=== PATIENT | male | born 1950 | race Caucasian/White ===

== ENCOUNTER 2017-08-16 08:11 | Day surgery (SDC) | payer MEDICARE ==
[2017-08-16 10:45] VITALS: TEMP 98.4
[2017-08-16 10:47] VITALS: BMI 28.3
[2017-08-16 10:49] VITALS: BP 138/83
[2017-08-16] MEDS ORDERED: FLU VACC TS2017-18 (>65YR) 0.5 ML SYRINGE IM ONE (11:00)
--- NOTE | 2017-08-16 12:09 | MRI ---
MRI THORACIC SPINE WITH AND WITHOUT CONTRAST: Date: 08/16/17 HISTORY: 67-year-old male with D48.0 spine lesion. Chronic low back pain. COMPARISON: None. TECHNIQUE: Multisequence MRI of thoracic spine obtained in sagittal and axial planes, pre and post IV injection of 20 mL of MultiHance Gadolinium based contrast agent. FINDINGS: Vertebral body heights are maintained. 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 Likewise, at the left posterior aspect of the T7 vertebral body, there is a similar lesion with similar signal characteristics and enhancement, consistent with anothe r hemangioma of bone. There is a nonacute, nonunited fracture of the proximal aspect of the left 10th rib, surrounded by a 2 x 2 cm soft tissue-signal mass with heterogeneous enhancement. There is bone marrow edema of the 2 fracture fragments. Within the right T12 spinal canal, there is an approximately 1 x 1 x 2 cm rim-enhancing mass which is heterogeneously T2 hypointense and intermediate, T1 hypointense, and has circumferential rim enhance ment contiguous with enhancement of the anterior epidural space. This mass is probably extradural. Th e mass mildly displaces the lower portion of the spinal cord to the left. The mass occupies approxima tely 20% of the cross-sectional area of the spinal canal at this level. There is also a rim enhancing mass component in the right T12-L1 neural foramen. This component measures approximately 1.0 x 0.5 c m (axial image 67 of 72, series 11). There is no impingement upon the rest of the thoracic spinal cord. The thoracic spinal cord is normal in size and signal. At T11-12, there is moderate to severe bilateral degenerative facet disease, with hypertrophy of the bilateral facet complexes and ligamentum flavum thickening, which indent the bilateral posterolateral aspect of the thecal sac, abutting the spinal cord. This, together with central and bilateral parace ntral disc herniation or disc-osteophytic bar complex, results in moderate central spinal canal steno sis at that level. There is also similar posterior element degenerative hypertrophy, some asymmetrica lly so, at multiple levels throughout the lower, mid, and upper thoracic spine, but there are no othe r levels of moderate or severe central spinal canal stenosis. Facet osteophytes do encroach upon bila teral neural foramina at multiple levels, causing mild and moderate neural foraminal stenosis. IMPRESSION: 1. A rim-enhancing mass in the right side of the spinal canal (probably extradural) at the T12 level , mildly impinging on the right side of the spinal cord, with a component occupying the right neural foramen. Based on the rim enhancement pattern, these are probably an extruded, migrated, and possibly sequestered extruded disc herniation fragments. It is uncertain whether the large mass within the sp inal canal has arisen from the T11-12 disc or the T12-L1 disc. It is slightly favored that they have both originated from the T12-L1 disc. The other possibility of a neoplasm such as nerve sheath tumor is considered less likely, because the T2 signal characteristic and the enhancement characteristic ar e not typical for nerve sheath tumor. Intraspinal metastasis is also unlikely. 2. Fracture and surrounding mass of the left T10 rib. It is possible that this fracture could be tra umatic, and that the enhancing mass could be reactive granulation tissue and/or callus. However, the fact that it is isolated to this one rib would be unusual for trauma. Therefore, the possibility of p athologic fracture due to underlying aggressive process such as rib metastasis, should be considered. Consider CT of the chest, abdomen, and pelvis with contrast, and/or nuclear medicine whole body bone scan, to search for other skeletal lesions, and any potential primary neoplasm. 3. Thoracic spondylosis, with multilevel (predominantly mild) degenerative disc disease, and multile ivan (including moderately severe) facet osteoarthrosis. 5. No compression fracture. CODE T.
[2017-08-16] MEDS ORDERED: Gadobenate Dimeglumine 529 MG/1 ML (20ML VIAL) ONE (13:58)
[2017-08-16] MEDS ORDERED: Iopamidol-M 300 61% 15 ML VIAL ONE (13:58)
--- NOTE | 2017-08-16 15:46 | CT ---
MYELOGRAM AND POSTMYELOGRAPHIC CT OF THORACIC SPINE: DATE: 08/26/17. FINDINGS: Informed consent was obtained from the patient. The right L1-2 interlaminar space was marked using a hemostat. The overlying skin was prepped and dr aped in the usual sterile manner. A 1% Lidocaine solution was used to anesthetize the overlying soft tissues. A 22-gauge spinal needle was placed into the subarachnoid space. Approximately 10 mL of I sovue-M 300 was injected into the subarachnoid space. This was positioned using gravity into the tho racic spine. Postmyelographic CT images obtained. Bridging osteophytes seen extending anteriorly from T4 all the way to T12. No definite intrathecal a bnormality is seen. There is a right-sided T12 epidural collection which compresses the right T12 th ecal sac displacing the thecal sac and distal cord toward the left. This correlates with the area of enhancement seen on the patient's recent MRI. IMPRESSION: 1. Right T12 epidural and neural foraminal soft tissue density compressing the thecal sac extending into the right T12-L1 neural foramen. 2. Incidentally noted heterogeneous fullness and enhancement is seen in the left thyroid lobe which is asymmetrically enlarged. POS: [facility]
== END 2017-08-16 13:03 | disposition home or self-care (01) ==
LOC: RAD 08:11
PROVIDERS: ATTEND Surgery
DX: D48.0 Neoplasm of uncertain behavior of bone and articular cartilage (principal); G89.29 Other chronic pain; M54.5 Low back pain; Z79.01 Long term (current) use of anticoagulants; Z86.711 Personal history of pulmonary embolism; Z86.73 Personal history of transient ischemic attack (TIA), and cerebral infarction without residual deficits; Z96.659 Presence of unspecified artificial knee joint
CPT/HCPCS: 62303; 72129; 72157; A9579

== ENCOUNTER 2017-12-08 11:22 | Outpatient (CLI) | payer MEDICARE ==
[2017-12-08 12:24] LABS: Hemoglobin 15.7 g/dL (14.0-18.0); Mean Corpuscular HGB CONC 33.8 g/dL (32.0-36.0); Mean Corpuscular Hemoglobin 30.6 pg (27.0-31.0); Mean Corpuscular Volume 90.7 fl (80.0-94.0); Mean Platelet Volume 6.8 fL (7.4-10.4); Platelet Count 200 thou/uL (130-400); RBC Distribution Width 11.6 % (11.5-14.5); Red Blood Cell (RBC) Count 5.12 mill/uL (4.70-6.10); White Blood Cell (WBC) Count 4.8 thou/uL (4.8-10.8)
[2017-12-08 12:35] LABS: PTT 30.1 SEC (22.9-36.1); Prothrombin Time 12.9 SEC (12.0-14.7)
[2017-12-08 12:44] LABS: Anion Gap 10 mmol/L (10-20); BUN (Urea Nitrogen) 15 mg/dL (8.4-25.7); Calc. Creatinine Clearance 0 mL/min (70-130); Calcium 9.8 mg/dL (7.8-10.44); Carbon Dioxide 30 mmol/L (23-31); Chloride 100 mmol/L (98-107); Estimated GFR-MDRD 67; Glucose 100 mg/dL (80-115); Potassium 4.2 mmol/L (3.5-5.1); Sodium 136 mmol/L (136-145)
--- NOTE | 2017-12-22 22:42 | EKG ---
Test Reason : Blood Pressure : / mmHG Vent. Rate : 052 BPM Atrial Rate : 052 BPM P-R Int : 166 ms QRS Dur : 086 ms QT Int : 418 ms P-R-T Axes : 048 024 028 degrees QTc Int : 388 ms Sinus bradycardia Otherwise normal ECG No previous ECGs available Confirmed by Deya BREWER ([id number]) on 12/22/2017 10:41:47 PM Referred By: ROXANNE Confirmed By:Deya BREWER
== END 2017-12-08 11:23 | disposition home or self-care (01) ==
LOC: LABBT 11:22
PROVIDERS: ATTEND Surgery
DX: Z01.818 Encounter for other preprocedural examination (principal); M47.14 Other spondylosis with myelopathy, thoracic region; M51.14 Intervertebral disc disorders with radiculopathy, thoracic region
CPT/HCPCS: 80048; 85027; 85610; 85730; 93005; 93010

== ENCOUNTER 2017-12-14 05:49 | Inpatient (IN) | payer MEDICARE ==
[2017-12-08 11:36] VITALS: BMI 32.1
[2017-12-14] MEDS ORDERED: Sodium Chloride 0.9% 10 ML ONE (06:36)
[2017-12-14] MEDS ORDERED: Bacitracin Zinc Ointment 30 gm TUBE ONE (06:36)
[2017-12-14] MEDS ORDERED: Thrombin 5000 UNITS/5 ML VIAL ONE (06:36)
[2017-12-14] MEDS ORDERED: CEFAZOLIN/Water 2 GM/20 ML SYRINGE ONE (06:45)
[2017-12-14] MEDS ORDERED: Albumin 5% 500 ML ONE (07:09)
[2017-12-14] MEDS ORDERED: Phenylephrine HCL 10 MG/ML VIAL ONE (07:09)
[2017-12-14] MEDS ORDERED: Fentanyl 250 MCG/5 ML VIAL ONE (07:25)
[2017-12-14] MEDS ORDERED: Morphine Sulfate 2 MG/ML SYRINGE SLOW IVP PRN (09:31)
[2017-12-14] MEDS ORDERED: Ondansetron HCl/PF 4 MG/2 ML Vial IVP PRN (09:31)
[2017-12-14] MEDS ORDERED: Promethazine HCl 25 MG/ML VIAL SLOW IVP PRN (09:31)
[2017-12-14] MEDS ORDERED: HYDROmorphone 2 MG/ML VIAL SLOW IVP PRN (09:31)
[2017-12-14] MEDS ORDERED: Meperidine HCl/PF 25 MG/ML VIAL SLOW IVP PRN (09:31)
[2017-12-14] MEDS ORDERED: Promethazine HCl 25 MG/ML VIAL IM PRN ×2 (09:31→11:22)
[2017-12-14] MEDS ORDERED: HYDROmorphone 0.5 MG/0.5 ML SYRINGE ONE (11:05)
--- NOTE | 2017-12-14 11:06 | OP ---
DATE OF PROCEDURE: 12/14/2017 OR: OR #12 WOUND TYPE: Type 1 wound. SURGEON: Antonio Suh M.D. LASER CUTTER: Eyal Car PA-C. 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 PROCEDURE: 1. Right T12-L1 transpedicular approach with pediculectomy and transverse process removal with trans faucet approach to a herniated disk with diskectomy. 2. Use of operative microscope for microdissection. DESCRIPTION OF PROCEDURE: After informed consent was obtained from the patient, the patient brought to OR. Proper patient pause identification was carried out. He was placed under general anesthesia and positioned prone. All appropriate points were padded. Using AP fluoroscopy I identified the T12 -L1 segment. A linear luis was made in this region. This area sterilely cleansed, prepared, and ira ped. Proper patient pause and identification was carried out. The wound was then opened with a comb ination of sharp, monopolar and blunt dissection. I proceeded over the right T12-L1 segment and expo sed this region and localized. I then performed a right T12 transpedicular approach and exposed the right T12 nerve root, both above and below where it attached to the common dural tube. Being very ca reful I then identified using the operative microscope for microdissection disk material that had ext ruded from the T12-L1 segment and moved cephalad. Multiple disk fragments were removed resulting in satisfactory decompression of spinal cord and nerve root. There was no spinal fluid leak. Hemostasi s was maximized and the wound was then closed in anatomic layers following the sprinkling of vancomyc in powder. The patient then emerged from anesthesia.
[2017-12-14] MEDS ORDERED: Fleet Enema 133 ML BOT PR PRN (11:22)
[2017-12-14] MEDS ORDERED: Acetaminophen/Codeine 30-300mg Tablet PO PRN (11:22)
[2017-12-14] MEDS ORDERED: Milk Of Magnesia 30 ML UDCUP PO PRN (11:22)
[2017-12-14] MEDS ORDERED: traMADol HCl 50 MG TAB PO PRN (11:22)
[2017-12-14] MEDS ORDERED: Mag-Al 1200 mg/1200 mg/30 ML UDCUP PO PRN (11:22)
[2017-12-14] MEDS ORDERED: Acetaminophen 325 MG TAB PO PRN (11:22)
[2017-12-14] MEDS ORDERED: Bisacodyl 10 MG SUPP PR PRN (11:22)
[2017-12-14] MEDS ORDERED: Lidocaine 1% PF 5 ML VIAL ONE (11:43)
[2017-12-14] MEDS ORDERED: Glycopyrrolate 0.2 MG/ML 5 ML SYRINGE ONE (11:43)
[2017-12-14] MEDS ORDERED: ePHEDrine/0.9% NaCl/PF SYRINGE 50 mg/10 ml ONE (11:43)
[2017-12-14] MEDS ORDERED: PHENYLEPHRINE-NS 100 MCG/ML 10 ML SYRINGE ONE (11:43)
[2017-12-14] MEDS ORDERED: PROPOFOL 200 MG/20 ML VIAL ONE (11:43)
[2017-12-14] MEDS ORDERED: Ondansetron HCl/PF 4 MG/2 ML Vial ONE (11:43)
[2017-12-14] MEDS ORDERED: Promethazine HCl 25 MG/ML VIAL ONE (11:57)
[2017-12-14] MEDS ORDERED: CEFAZOLIN/Water 2 GM/20 ML SYRINGE SLOW IVP SCH (14:00)
[2017-12-14] MEDS: Sodium Chloride 0.9% 1,000 ML IV SCH (14:50)
[2017-12-14] MEDS ORDERED: Morphine 4 MG/ML VIAL SLOW IVP PRN (14:54)
[2017-12-14] MEDS: CEFAZOLIN/Water 2 GM/20 ML SYRINGE SLOW IVP SCH (16:33)
[2017-12-14] MEDS: HYDROcodone/Acetaminophen 7.5/325 mg Tablet PO PRN (20:56)
[2017-12-14] MEDS ORDERED: Finasteride 5 MG TAB PO SCH (21:00)
[2017-12-14] MEDS ORDERED: Pravastatin Sodium 40 MG TAB PO SCH (21:00)
[2017-12-14] MEDS ORDERED: Valsartan 80 MG TAB PO SCH (21:00)
[2017-12-14] MEDS ORDERED: Amlodipine 5 MG TAB PO SCH (21:00)
[2017-12-14] MEDS ORDERED: Hydrochlorothiazide 25 MG TAB PO SCH (21:00)
[2017-12-14] MEDS ORDERED: Non-Formulary Item 1 EACH (Valsartan/Hydrochlorothiazide [Valsartan-Hctz 320-12.5 Mg Tab] PO SCH (21:00)
[2017-12-14] MEDS ORDERED: Tamsulosin HCl 0.4 MG CAP PO SCH (21:00)
[2017-12-15] MEDS: CEFAZOLIN/Water 2 GM/20 ML SYRINGE SLOW IVP SCH (00:30)
[2017-12-15] MEDS: HYDROcodone/Acetaminophen 7.5/325 mg Tablet PO PRN ×2 (00:43→10:01)
[2017-12-15] MEDS: tiZANidine HCl 4 MG TAB PO PRN ×2 (00:44→11:25)
[2017-12-15] MEDS: Sodium Chloride 0.9% 1,000 ML IV SCH (04:09)
[2017-12-15] MEDS ORDERED: Calcium Carbonate + Vit D 1 TAB PO SCH (09:00)
[2017-12-15] MEDS ORDERED: [UNRECOGNIZED DRUG - OTHER] PO SCH (09:00)
[2017-12-15 11:28] VITALS: BP 134/80; TEMP 98.2
--- NOTE | 2017-12-15 12:40 | PRG ---
DATE OF SERVICE: 12/15/2017 This is Eyal Car PA-C dictating for Antonio Suh M.D. SUBJECTIVE: Mr. Zarate is now postoperative day #1, having undergone multilevel thoracic hemila minotomies and diskectomies. The patient overall states he is doing very well postoperatively. He d oes have incisional back pain. Has occasional leg pain, but states overall this is improving signifi cantly. He has good strength in the bilateral lower extremities and upper extremities with intact se nsation to light touch. He states he is feeling well and often has met criteria for discharge, so we will dismiss him later today. I reminded him to restart his aspirin 3 days from now and to discuss his Eliquis with Dr. Barkley, his primary care provider, but would not suggest starting this sooner th an 10 days postop. Ample opportunity was given to the patient and his to discuss the questions and concerns and they are very pleased with his outcome postoperatively.
== END 2017-12-15 11:43 | disposition home or self-care (01) | DRG 519 ==
LOC: SDC 05:49 → EDSTATUS 11:15 → SURG A 13:15
PROVIDERS: ADMIT Surgery; ATTEND Surgery
PROC: 0RBB0ZZ Excision of Thoracolumbar Vertebral Disc, Open Approach (ICD-10-PCS; principal; 2017-12-14)
DX: M47.14 Other spondylosis with myelopathy, thoracic region; M51.04 Intervertebral disc disorders with myelopathy, thoracic region
CPT/HCPCS: 76001; 96374; A4216; J0131; J1170; J2001; J2370; J2405; J2550; J2704; J3010; J3370; J3490; P9045